=== PATIENT | female | born 1970 ===

== ENCOUNTER 2017-10-15 17:15 | Inpatient (IN) | payer OTHER ==
[2017-10-15 17:16] VITALS: BMI 31.1
[2017-10-15] MEDS ORDERED: Oxycodone/Acetaminophen 5/325 mg Tab PO STA (17:59)
--- NOTE | 2017-10-15 17:59 | C.PDOC ---
History Of Present Illness 47 y/o F c known R ovarian cystic mass for which patient is seeing Dr. Smita Osullivan and is being scheduled for resection. Patient states she has had significant pain for almost 1 month. She was prescribed Percocet but states she did not try taking it today because it makes her constipated and she has difficulty straining due to the pain. Denies fever, dysuria, vomiting. Time Seen by Provider: 10/15/17 17:43 Chief Complaint (Nursing): Abdominal Pain Past Medical History Vital Signs: Last Vital Signs Temp 98.7 F 10/15/17 17:30 Pulse 89 10/15/17 17:30 Resp 20 10/15/17 17:30 BP 120/66 10/15/17 19:50 Pulse Ox 97 10/15/17 18:43 - Medical History PMH: Depression (denies suicidal ideations) Denies: HIV, Chronic Kidney Disease Surgical History: Endoscopy - [facility] Procedures CLOSED ENDOSCOPIC BIOPSY OF LARGE INTESTINE (05/05/14) COMPRESSION OF ABDOMINAL WALL USING PRESSURE DRESSING (05/08/16) ESOPHAGOGASTRODUODENOSCOPY [EGD] W/CLOSED BIOPSY (05/05/14) INJECT/INFUSE ELECTROLYT (06/05/13) INJECT/INFUSE NEC (06/05/13) RESECTION OF BILATERAL FALLOPIAN TUBES, OPEN APPROACH (04/22/16) RESECTION OF CERVIX, OPEN APPROACH (04/22/16) RESECTION OF UTERUS, OPEN APPROACH (04/22/16) Family History: States: Unknown Family Hx - Social History Hx Tobacco Use: Yes (10 per day) Hx Alcohol Use: Yes Hx Substance Use: No - Immunization History Hx Tetanus Toxoid Vaccination: No Hx Influenza Vaccination: No Hx Pneumococcal Vaccination: No Review Of Systems Except As Marked, All Systems Reviewed And Found Negative. Constitutional: Negative for: Fever Cardiovascular: Negative for: Chest Pain Physical Exam - Physical Exam Additional Physical Exam Comments: Gen: NAD Head: NC/AT Eyes: PERRL ENT: MMM Neck: Supple Chest: No tenderness CV: Regular rate Lungs: CTA b/l Abd: R pelvic tenderness Back: No CVA tenderness Extremities: No edema Neuro: Alert, no focal deficit Skin: Lower abdominal scar , well healed, no discharge ED Course And Treatment - Laboratory Results Result Diagrams: 10/15/17 18:57 10/15/17 18:57 O2 Sat by Pulse Oximetry: 97 Medical Decision Making Medical Decision Making: Discussed case with Dr. Osullivan who states if patient can tolerate PO pain medication and relieves pain sufficiently, can be discharged and will be scheduled as outpatient likely Monday or . Patient states she is agreeable to this plan if given stool softener with pain medication. Patient states pain not controlled. Parenteral analgesia administered. Dr. Osullivan accepts patient to her service. Disposition - Disposition Disposition: HOSPITALIZED Disposition Time: 18:43 Condition: FAIR Forms: [employer] (Albanian) - Clinical Impression Clinical Impression: Ovarian cyst, Intractable pain
[2017-10-15] MEDS ORDERED: Oxycodone/Acetaminophen 5/325 mg Tab ONE (18:13)
[2017-10-15 19:09] LABS: BASO # 0.1 K/uL (0.0-0.2); BASO % 1.3 % (0.0-2.0); EOS # 0.2 K/uL (0.0-0.7); EOS % 1.5 % (0.0-4.0); HEMOGLOBIN 12.9 g/dL (11.0-16.0); LYMPH # 3.3 K/uL (1.0-4.3); LYMPH % 30.6 % (20.0-40.0); MEAN CELL VOLUME 79.1 fL (81.0-99.0); MEAN CORPUSCULAR HEMOGLOBIN 27.7 pg (27.0-31.0); MONO # 0.8 K/uL (0.0-0.8); MONO % 7.2 % (0.0-10.0); NEUT # 6.4 K/uL (1.8-7.0); NEUT % 59.4 % (50.0-75.0); NRBC % 0.2 % (0.0-2.0); RBC 4.65 Mil/uL (3.80-5.20); RED CELL DISTRIBUTION WIDTH 13.8 % (11.5-14.5); WHITE BLOOD COUNT 10.8 K/uL (4.8-10.8)
[2017-10-15 19:14] LABS: INR 1.1; PROTHROMBIN TIME 11.9 SECONDS (9.7-12.2)
[2017-10-15 19:21] LABS: ALB/GLOB RATIO 1.2 (1.0-2.1); ALT/SGPT 18 U/L (9-52); AST/SGOT 17 U/L (14-36); BLOOD UREA NITROGEN 11 mg/dL (7-17); CALCIUM 9.6 mg/dl (8.6-10.4); GFR AFRICAN-AMERICAN > 60; GFR NON-AFRICAN AMERICAN > 60
[2017-10-15] MEDS ORDERED: Morphine 4 MG/ML VIAL ONE (19:22)
[2017-10-15 19:34] LABS: SQUAMOUS EPITHIAL 5 /hpf (0-5); URINE BACTERIA RARE (<OCC); URINE BILIRUBIN NEGATIVE (NEGATIVE); URINE BLOOD NEGATIVE (NEGATIVE); URINE CLARITY Clear (Clear); URINE COLOR Yellow (YELLOW); URINE GLUCOSE (UA) NORMAL (Normal); URINE LEUKOCYTE ESTERASE NEG Leu/uL (Negative); URINE PROTEIN NEGATIVE (NEGATIVE); URINE UROBILINOGEN NORMAL mg/dL (0.2-1.0)
[2017-10-15] MEDS ORDERED: Oxycodone/Acetaminophen 5/325 mg Tab PO PRN (21:37)
[2017-10-16 08:02] LABS: BASO # 0.1 K/uL (0.0-0.2); BASO % 1.2 % (0.0-2.0); EOS # 0.1 K/uL (0.0-0.7); EOS % 1.4 % (0.0-4.0); HEMOGLOBIN 12.5 g/dL (11.0-16.0); LYMPH # 2.1 K/uL (1.0-4.3); LYMPH % 25.3 % (20.0-40.0); MEAN CELL VOLUME 79.1 fL (81.0-99.0); MEAN CORPUSCULAR HEMOGLOBIN 27.8 pg (27.0-31.0); MEAN CORPUSCULAR HGB CONC 35.2 g/dL (33.0-37.0); MONO # 0.5 K/uL (0.0-0.8); MONO % 6.3 % (0.0-10.0); NEUT # 5.6 K/uL (1.8-7.0); NEUT % 65.8 % (50.0-75.0); RBC 4.5 Mil/uL (3.80-5.20); RED CELL DISTRIBUTION WIDTH 14.4 % (11.5-14.5); WHITE BLOOD COUNT 8.5 K/uL (4.8-10.8)
[2017-10-16 08:36] LABS: ALB/GLOB RATIO 1.2 (1.0-2.1); ALBUMIN 3.8 g/dL (3.5-5.0); AST/SGOT 92 U/L (14-36); BLOOD UREA NITROGEN 11 mg/dL (7-17); CALCIUM 9.1 mg/dl (8.6-10.4); GFR AFRICAN-AMERICAN > 60; GFR NON-AFRICAN AMERICAN > 60
[2017-10-16 08:41] LABS: ALT/SGPT 82 U/L (9-52)
[2017-10-16] MEDS: Oxycodone/Acetaminophen 5/325 mg Tab PO PRN ×2 (09:20→17:30)
--- NOTE | 2017-10-16 14:32 | US ---
HISTORY: for pelvic mass COMPARISON: None available. TECHNIQUE: Transabdominal and transvaginal FINDINGS: UTERUS: Status post hysterectomy ENDOMETRIUM: Hysterectomy CERVIX: Hysterectomy RIGHT OVARY: In the right adnexal region there is a complex cyst with low-level internal echoes and few thin septations measuring 8.8 x 6.5 x 7.2 cm. This may represent a hemorrhagic cyst. Also on the right side, there is what appears to be a hydrosalpinx. There is no left ovary identified. No other pelvic mass is identified. LEFT OVARY: As above FREE FLUID: No significant free fluid noted. OTHER FINDINGS: None. IMPRESSION: Probable hemorrhagic right ovarian cyst, 8.8 cm greatest dimension. Suspect right hydrosalpinx.
--- NOTE | 2017-10-16 18:16 | CP.PCM.HP ---
History of Present Illness - History of Present Illness History of Present Illness: Delayed entry: pt seen and eamined at 8:30am today 47 y/o hx of MILTON and abdominoplasty x 2 (most recent <30 days ago) with pelvic pain secondary to ovarian cyst 9cm. pt reports she first noticed pain a few months ago after intercourse however it resolved and then recently noticed the sudden onset of intense pain prompting her to go to ER. Pt states she is concerned about needing surgery again and reprots she is unhappy about her abdominal swelling. Pt did experience a wound infection that took an extended time of recovery requring a wound vac after her hystecotmy. Pt reports she is not taking any pain medication currently, dneis nausea, vomiting, cps, bowel ro bladder compliant fever, chills. Pt was seen in ER and evaluated o/p in office and given hx of extensive wound breakdown was referred to computer graphic artist onc for possible robotic / minimally invasive approach given previous surgical hx. Pt had follow up but declined to have surgery and would like to have it done as soon as possible. pt was also referred to general surgery as well for co manaagment given risk of adhesions. Pt had increasing pain latst night and was informed by doctor to go to ER in while pt was not able ot achieve adequate control with po mediation using iv pain medication. pt dnies any weight gain or loss, early satiey, abodminal distension or bloating. pt had tumor markers that were done and were normal.Pt sates pain is mainly rlq constant in nature, varies intesnity and severity. 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: hx of ovarian cyst, s/p MILTON, hx of abnormal pap, fibroids Period lmp 2015, last pap 01/06/2016, PMH: 5 herinated discs of lower back, 3 neck discs PHS: Hysteroscopy 2016, Hysterecotmy 2016, Liposuction, Tummy tuck, Tubal ligation, FHX: Mother/Fater alive and healthy: Uncled Decedased form cancer, denies any hx of anbormla uterine, colon, breast or ovarian cancer SHX: former smoker, social alcohol, no ivda meds: see meds rec NKDA Present on Admission - Present on Admission Any Indicators Present on Admission: No History of DVT/PE: No History of Uncontrolled Diabetes: No Review of Systems - Review of Systems All systems: reviewed and no additional remarkable complaints except - EENT Eyes: absent: As Per HPI, Blind Spots, Blurred Vision, Change in Vision, Decreased Night Vision, Diplopia, Discharge, Dry Eye, Exophthalmos, Floaters, Irritation, Itchy Eyes, Loss of Peripheral Vision, Pain, Photophobia, Requires Corrective Lenses, Sees Flashes, Spots in Vision, Tunnel Vision, Other Visual Disturbances, Loss of Vision, Other Nose/Mouth/Throat: absent: As Per HPI, Epistaxis, Nasal Congestion, Nasal Discharge, Nasal Obstruction, Nasal Trauma, Nose Pain, Post Nasal Drip, Sinus Pain, Sinus Pressure, Bleeding Gums, Change in Voice, Dental Pain, Dry Mouth, Dysphagia, Halitosis, Hoarsness, Lip Swelling, Mouth Lesions, Mouth Pain, Odynophagia, Sore Throat, Throat Swelling, Tongue Swelling, Facial Pain, Neck Pain, Neck Mass, Other - Breasts Breasts: absent: As Per HPI, Change in Shape, Mass, Pain, Nipple Discharge, Nipple Inversion, Skin Changes, Swelling, Other - Cardiovascular Cardiovascular: absent: As Per HPI, Acrocyanosis, Chest Pain, Chest Pain at Rest , Chest Pain with Activity, Claudication, Diaphoresis, Dyspnea, Dyspnea on Exertion, Edema, Irregular Heart Rhythm, Pain Radiating to Arm/Neck/Jaw, Leg Edema, Leg Ulcers, Lightheadedness, Orthopnea, Palpitations, Paroxysmal Nocturnal Dyspnea, Pedal Edema, Radiating Pain, Rapid Heart Rate, Slow Heart Rate, Syncope, Other - Respiratory Respiratory: absent: As Per HPI, Cough, Dyspnea, Hemoptysis, Dyspnea on Exertion , Wheezing, Snoring, Stridor, Pain on Inspiration, Chest Congestion, Excessive Mucous Production, Change in Mucous Color, Pain with Coughing, Other - Gastrointestinal Gastrointestinal: Abdominal Pain - Genitourinary Genitourinary: absent: As Per HPI, Change in Urinary Stream, Difficulty Urinating, Dysuria, Flank Pain, Hematuria, Pyuria, Nocturia, Urinary Incontinence, Urinary Frequency, Urinary Hesitance, Urinary Urgency, Voiding Freq/Small Amts, Freq UTI, Hx Renal/Bladder Calculi, Hx /Renal Surgery, Bladder Distension, Other - Reproductive: Female Reproductive:Female: S/P Hysterectomy - Menstruation Menstruation: As Per HPI - Musculoskeletal Musculoskeletal: absent: As Per HPI, Abnormal Gait, Arthralgias, Atrophy, Back Pain, Deformity, Joint Swelling, Limited Range of Motion, Loss of Height, Muscle Cramps, Muscle Weakness, Myalgias, Neck Pain, Numbness, Radiating Pain into Limb, Stiffness, Tingling, Other - Integumentary Integumentary: absent: As Per HPI, Acne, Alopecia, Bleeding Lesions, Change in Hair, Change in Nails, Change in Pigmentation, Changing Lesions, Dry Skin, Erythema, Furuncle, Hirsutism, Lesions, New Lesions, Non-Healing Lesions, Photosensitivity, Pruritus, Rash, Skin Pain, Skin Ulcer, Sores, Striae, Swelling , Unusual Bruising, Wounds, Jaundice, Other Past Patient History - Infectious Disease Hx of Infectious Diseases: None - Tetanus Immunizations Tetanus Immunization: Unknown - Past Medical History & Family History Past Medical History?: Yes - Past Social History Smoking Status: Current Some Days Smoker - CARDIAC Hx Cardiac Disorders: No - PULMONARY Hx Respiratory Disorders: No - NEUROLOGICAL Hx Neurological Disorder: No - HEENT Hx HEENT Problems: Yes - RENAL Hx Chronic Kidney Disease: No - ENDOCRINE/METABOLIC Hx Endocrine Disorders: No - HEMATOLOGICAL/ONCOLOGICAL Hx Human Immunodeficiency Virus (HIV): No - INTEGUMENTARY Hx Dermatological Problems: No - MUSCULOSKELETAL/RHEUMATOLOGICAL Hx Falls: No - GASTROINTESTINAL Hx Gastrointestinal Disorders: Yes (CONSTIPATION) Other/Comment: 09/18/2017 abdominal liposuction - GENITOURINARY/GYNECOLOGICAL Hx Genitourinary Disorders: Yes - PSYCHIATRIC Hx Depression: Yes (denies suicidal ideations) Hx Substance Use: No - SURGICAL HISTORY Hx Breast Biopsy: (breast reduction jose manuel) Hx Hysterectomy: Yes Other/Comment: christina ledesma 2014. breast reduction 11/2016. abd liposuction - ANESTHESIA Hx Anesthesia: Yes Hx Anesthesia Reactions: No Hx Malignant Hyperthermia: No Meds Allergies/Adverse Reactions: Allergies Allergy/AdvReac Type Severity Reaction Status Date / Time No Known Allergies Allergy Verified 10/15/17 17:37 Physical Exam - Constitutional Appears: Well, Non-toxic, No Acute Distress - Head Exam Head Exam: ATRAUMATIC, NORMAL INSPECTION - Eye Exam Eye Exam: EOMI - ENT Exam ENT Exam: Mucous Membranes Moist - Neck Exam Neck exam: Positive for: Normal Inspection - Respiratory Exam Respiratory Exam: Clear to Auscultation Bilateral, NORMAL BREATHING PATTERN - Cardiovascular Exam Cardiovascular Exam: REGULAR RHYTHM, +S1, +S2 - GI/Abdominal Exam GI & Abdominal Exam: Soft, Tenderness Additional comments: RLQ non guarding, no rebound tendner, no tidity, +BS rpeivsu incison c/d/i preoivus scar non tender - Exam Additional comments: External gentiali: no gross abnormalies Vagna; cuff intact Uteurs; absent Right adnexa; mass enalrged ttp Anus/perienum: grossly normal Results - Vital Signs Recent Vital Signs: Last Vital Signs Temp 97.7 F 10/16/17 16:00 Pulse 60 10/16/17 16:00 Resp 18 10/16/17 16:00 BP 99/62 L 10/16/17 16:00 Pulse Ox 97 10/16/17 16:00 - Labs Result Diagrams: 10/16/17 07:55 10/16/17 07:55 Labs: Laboratory Results - last 24 hr 10/15/17 10/15/17 10/15/17 18:57 18:57 18:57 WBC 10.8 RBC 4.65 Hgb 12.9 Hct 36.8 MCV 79.1 L D MCH 27.7 MCHC 35.0 RDW 13.8 Plt Count 316 MPV 8.0 Neut % (Auto) 59.4 Lymph % (Auto) 30.6 [place] % (Auto) 7.2 Eos % (Auto) 1.5 Baso % (Auto) 1.3 Neut # (Auto) 6.4 Lymph # (Auto) 3.3 [place] # (Auto) 0.8 Eos # (Auto) 0.2 Baso # (Auto) 0.1 PT 11.9 INR 1.1 APTT 34 Sodium 140 Potassium 4.1 Chloride 102 Carbon Dioxide 28 Anion Gap 14 BUN 11 Creatinine 0.7 Est GFR ( Amer) > 60 Est GFR (Non-Af Amer) > 60 Random Glucose 86 Calcium 9.6 Total Bilirubin 0.5 AST 17 ALT 18 Alkaline Phosphatase 67 Total Protein 7.2 Albumin 4.0 Globulin 3.2 Albumin/Globulin Ratio 1.2 Urine Color Urine Clarity Urine pH Ur Specific [place] Urine Protein Urine Glucose (UA) Urine Ketones Urine Blood Urine Nitrate Urine Bilirubin Urine Urobilinogen Ur Leukocyte Esterase Urine WBC (Auto) Urine RBC (Auto) Ur Squamous Epith Cells Urine Bacteria Blood Type Antibody Screen 0610/15/17 10/16/17 18:57 19:20 07:55 WBC 8.5 RBC 4.50 Hgb 12.5 Hct 35.6 MCV 79.1 L MCH 27.8 MCHC 35.2 RDW 14.4 Plt Count 305 MPV 8.0 Neut % (Auto) 65.8 Lymph % (Auto) 25.3 [place] % (Auto) 6.3 Eos % (Auto) 1.4 Baso % (Auto) 1.2 Neut # (Auto) 5.6 Lymph # (Auto) 2.1 [place] # (Auto) 0.5 Eos # (Auto) 0.1 Baso # (Auto) 0.1 PT INR APTT Sodium Potassium Chloride Carbon Dioxide Anion Gap BUN Creatinine Est GFR ( Amer) Est GFR (Non-Af Amer) Random Glucose Calcium Total Bilirubin AST ALT Alkaline Phosphatase Total Protein Albumin Globulin Albumin/Globulin Ratio Urine Color Yellow Urine Clarity Clear Urine pH 7.0 Ur Specific [place] 1.017 Urine Protein Negative Urine Glucose (UA) Normal Urine Ketones Negative Urine Blood Negative Urine Nitrate Negative Urine Bilirubin Negative Urine Urobilinogen Normal Ur Leukocyte Esterase Neg Urine WBC (Auto) < 1 Urine RBC (Auto) 1 Ur Squamous Epith Cells 5 Urine Bacteria Rare Blood Type A POSITIVE Antibody Screen Negative 10/16/17 07:55 WBC RBC Hgb Hct MCV MCH MCHC RDW Plt Count MPV Neut % (Auto) Lymph % (Auto) [place] % (Auto) Eos % (Auto) Baso % (Auto) Neut # (Auto) Lymph # (Auto) [place] # (Auto) Eos # (Auto) Baso # (Auto) PT INR APTT Sodium 138 Potassium 4.0 Chloride 101 Carbon Dioxide 28 Anion Gap 16 BUN 11 Creatinine 0.7 Est GFR ( Amer) > 60 Est GFR (Non-Af Amer) > 60 Random Glucose 103 Calcium 9.1 Total Bilirubin 1.1 AST 92 H D ALT 82 H D Alkaline Phosphatase 80 Total Protein 6.9 Albumin 3.8 Globulin 3.1 Albumin/Globulin Ratio 1.2 Urine Color Urine Clarity Urine pH Ur Specific [place] Urine Protein Urine Glucose (UA) Urine Ketones Urine Blood Urine Nitrate Urine Bilirubin Urine Urobilinogen Ur Leukocyte Esterase Urine WBC (Auto) Urine RBC (Auto) Ur Squamous Epith Cells Urine Bacteria Blood Type Antibody Screen - Imaging and Cardiology US - abdomen Status: Report reviewed by me Assessment & Plan (1) Pelvic mass Assessment and Plan: 47 y/o P3 with pelvic pain secondary to pelvic mass -admit to computer graphic artist -Pain managment: Po/IV -Regular diet for now -enocurage ambation -AM Labs -General surgery consult: re intraoperttive mangent pt advised on exploratory laparatomy, exicison of pelvic mass/ salpingoopherecotmy givne pain secondary to findigns r/ba/i not mtied to bleedign, infection, wound break down, injury to bowel, bladder or other organs pt advised will await surgery consut in regard to route and time of procedure all questions answered. pt agrees understand risk of open and even possible laparscopic approach Status: Acute
[2017-10-17 07:32] LABS: BASO % 0.5 % (0.0-2.0); EOS # 0.1 K/uL (0.0-0.7); EOS % 1.6 % (0.0-4.0); LYMPH # 2.8 K/uL (1.0-4.3); LYMPH % 31.1 % (20.0-40.0); MEAN CORPUSCULAR HGB CONC 35.4 g/dL (33.0-37.0); MONO # 0.8 K/uL (0.0-0.8); MONO % 8.6 % (0.0-10.0); NEUT # 5.1 K/uL (1.8-7.0); NEUT % 58.2 % (50.0-75.0); RBC 4.31 Mil/uL (3.80-5.20); WHITE BLOOD COUNT 8.9 K/uL (4.8-10.8)
[2017-10-17 07:50] LABS: INR 1.2; PROTHROMBIN TIME 12.6 SECONDS (9.7-12.2)
[2017-10-17 07:51] LABS: ALB/GLOB RATIO 1.5 (1.0-2.1); ALT/SGPT 59 U/L (9-52); AST/SGOT 35 U/L (14-36); BLOOD UREA NITROGEN 8 mg/dL (7-17); CALCIUM 9.1 mg/dl (8.6-10.4); GFR AFRICAN-AMERICAN > 60; GFR NON-AFRICAN AMERICAN > 60
--- NOTE | 2017-10-17 09:54 | CP.PCM.CON ---
<Grayson De La Fuente - Last Filed: 10/17/17 09:46> History of Present Illness - History of Present Illness History of Present Illness: Surgery 47 F with multiple surgical histomy including cholecystectomy, total abdominal hysterectomy, Tummy tuck, liposuction and came with pelvic pain. Pt had chronic pelvic pain and had D&C for abdnomal vaginal bleeding and hyesterctomy fibroids. Pt is also known to have ovarian cyst. This time pain started about 1 month ago and has gotten worse. Didn't take pain meds because constipation and straining made the pain worse. Pelvic US shows 9cm R ovarian cyst. Denies : fever, nausea, vomiting, diarrhea, CP, SOB, vaginal bleeding, hematochezia, skin changes on surgical site, weight loss, weight gain. Surgery is consulted to evaluate for possible minimally invasive surgical intervention. PMH hemorrhoids, fibroids, metromenorrhagia PSH tummy tuck, hysterectomy, cholecystectomy, breast reduction, liposuction, c- section Review of Systems - Review of Systems Review of Systems: See HPI Past Patient History - Infectious Disease Hx of Infectious Diseases: None - Tetanus Immunizations Tetanus Immunization: Unknown - Past Medical History & Family History Past Medical History?: Yes - Past Social History Smoking Status: Current Some Days Smoker - CARDIAC Hx Cardiac Disorders: No - PULMONARY Hx Respiratory Disorders: No - NEUROLOGICAL Hx Neurological Disorder: No - HEENT Hx HEENT Problems: Yes - RENAL Hx Chronic Kidney Disease: No - ENDOCRINE/METABOLIC Hx Endocrine Disorders: No - HEMATOLOGICAL/ONCOLOGICAL Hx Human Immunodeficiency Virus (HIV): No - INTEGUMENTARY Hx Dermatological Problems: No - MUSCULOSKELETAL/RHEUMATOLOGICAL Hx Falls: No - GASTROINTESTINAL Hx Gastrointestinal Disorders: Yes (CONSTIPATION) Other/Comment: 09/18/2017 abdominal liposuction - GENITOURINARY/GYNECOLOGICAL Hx Genitourinary Disorders: Yes - PSYCHIATRIC Hx Depression: Yes (denies suicidal ideations) Hx Substance Use: No - SURGICAL HISTORY Hx Breast Biopsy: (breast reduction jose manuel) Hx Hysterectomy: Yes Other/Comment: christina ledesma 2014. breast reduction 11/2016. abd liposuction - ANESTHESIA Hx Anesthesia: Yes Hx Anesthesia Reactions: No Hx Malignant Hyperthermia: No Meds Allergies/Adverse Reactions: Allergies Allergy/AdvReac Type Severity Reaction Status Date / Time No Known Allergies Allergy Verified 10/15/17 17:37 - Medications Medications: Current Medications Diphenhydramine HCl (Benadryl) 25 mg PO Q6 PRN PRN Reason: for itchiness Last Admin: 10/16/17 21:02 Dose: 25 mg Docusate Sodium (Colace) 100 mg PO BID ALINA Last Admin: 10/17/17 09:26 Dose: Not Given Lactated Ringer's (Lactated Ringer's) 1,000 mls @ 100 mls/hr IV .Q10H [facility] Ketorolac Tromethamine (Toradol) 30 mg IVP Q6 PRN PRN Reason: for pain Last Admin: 10/17/17 09:36 Dose: 30 mg Oxycodone/Acetaminophen (Percocet 5/325 Mg Tab) 1 tab PO Q4H PRN PRN Reason: for pain of 1-3 Stop: 10/18/17 21:38 Oxycodone/Acetaminophen (Percocet 5/325 Mg Tab) 2 tab PO Q4H PRN PRN Reason: for pain of 4-7 Stop: 10/18/17 21:40 Last Admin: 10/16/17 17:30 Dose: 2 tab Physical Exam - Constitutional Appears: Non-toxic, No Acute Distress - Head Exam Head Exam: ATRAUMATIC, NORMAL INSPECTION, NORMOCEPHALIC - Eye Exam Eye Exam: EOMI, Normal appearance, PERRL Pupil Exam: NORMAL ACCOMODATION, PERRL - ENT Exam ENT Exam: Mucous Membranes Moist, Normal Exam - Neck Exam Neck exam: Positive for: Normal Inspection - Respiratory Exam Respiratory Exam: Clear to Auscultation Bilateral, NORMAL BREATHING PATTERN - Cardiovascular Exam Cardiovascular Exam: REGULAR RHYTHM - GI/Abdominal Exam GI & Abdominal Exam: Normal Bowel Sounds, Soft. absent: Tenderness Additional comments: obese abdomen. healing tummy tuck scar. NO erythema. Discoloration . mass Non palpable - Rectal Exam Rectal Exam: Deferred - Exam Exam: NORMAL INSPECTION Additional comments: differed - Extremities Exam Extremities exam: Positive for: normal inspection - Back Exam Back exam: NORMAL INSPECTION - Neurological Exam Neurological exam: Alert, CN II-XII Intact, Normal Gait, Oriented x3, Reflexes Normal - Psychiatric Exam Psychiatric exam: Normal Affect, Normal Mood - Skin Skin Exam: Dry, Intact, Warm Results - Vital Signs Recent Vital Signs: Last Vital Signs Temp 97.0 F L 10/17/17 00:00 Pulse 60 06/12/18 00:00 Resp 20 10/17/17 00:00 BP 100/64 10/17/17 00:00 Pulse Ox 97 10/16/17 16:00 - Labs Result Diagrams: 10/17/17 07:17 10/17/17 07:17 Labs: Laboratory Results - last 24 hr 10/17/17 10/17/17 10/17/17 07:17 07:17 07:17 WBC 8.9 RBC 4.31 Hgb 12.0 Hct 34.0 MCV 79.0 L MCH 28.0 MCHC 35.4 RDW 14.0 Plt Count 301 MPV 8.0 Neut % (Auto) 58.2 Lymph % (Auto) 31.1 [place] % (Auto) 8.6 Eos % (Auto) 1.6 Baso % (Auto) 0.5 Neut # (Auto) 5.1 Lymph # (Auto) 2.8 [place] # (Auto) 0.8 Eos # (Auto) 0.1 Baso # (Auto) 0.0 PT 12.6 H INR 1.2 APTT 33 Sodium 137 Potassium 4.6 Chloride 100 Carbon Dioxide 32 H Anion Gap 11 BUN 8 Creatinine 0.7 Est GFR ( Amer) > 60 Est GFR (Non-Af Amer) > 60 Random Glucose 93 Calcium 9.1 Total Bilirubin 0.9 AST 35 ALT 59 H D Alkaline Phosphatase 64 Total Protein 6.7 Albumin 4.0 Globulin 2.7 Albumin/Globulin Ratio 1.5 Blood Type Antibody Screen 10/17/17 07:21 WBC RBC Hgb Hct MCV MCH MCHC RDW Plt Count MPV Neut % (Auto) Lymph % (Auto) [place] % (Auto) Eos % (Auto) Baso % (Auto) Neut # (Auto) Lymph # (Auto) [place] # (Auto) Eos # (Auto) Baso # (Auto) PT INR APTT Sodium Potassium Chloride Carbon Dioxide Anion Gap BUN Creatinine Est GFR ( Amer) Est GFR (Non-Af Amer) Random Glucose Calcium Total Bilirubin AST ALT Alkaline Phosphatase Total Protein Albumin Globulin Albumin/Globulin Ratio Blood Type A POSITIVE Antibody Screen Negative Assessment & Plan - Assessment and Plan (Free Text) Assessment: Pelvic pain 2/2 R ovarian cyst and possible adhesions from multiple abdominal surgeries -Planned for OR today with possible laparoscopic surgery -NPO -IVF -Pain control -DVT/GI ppx DW Dr. Solis <Chaparro Solis - Last Filed: 10/21/17 00:23> Meds - Medications Medications: Current Medications Diphenhydramine HCl (Benadryl) 25 mg PO Q6 PRN PRN Reason: for itchiness Last Admin: 10/16/17 21:02 Dose: 25 mg Diphenhydramine HCl (Benadryl) 25 mg IVP Q6 PRN PRN Reason: Itching / Pruritus Last Admin: 10/18/17 07:14 Dose: 25 mg Diphenhydramine HCl (Benadryl) 50 mg IVP Q6 PRN PRN Reason: Sedation Last Admin: 10/20/17 15:34 Dose: 50 mg Docusate Sodium (Colace) 100 mg PO BID ALINA Last Admin: 10/20/17 17:41 Dose: 100 mg Enoxaparin Sodium (Lovenox) 30 mg SC DAILY@1900 ALINA Last Admin: 10/20/17 19:38 Dose: 30 mg Famotidine (Pepcid) 20 mg IVP DAILY [facility] Lactated Ringer's (Lactated Ringer's) 1,000 mls @ 100 mls/hr IV .Q10H ALINA Piperacillin Sod/Tazobactam Sod (Zosyn 3.375 Gm Iv Premix) 3.375 gm in 50 mls @ 100 mls/hr IVPB Q6H ALINA PRN Reason: Protocol Last Admin: 10/20/17 22:01 Dose: 100 mls/hr Ketorolac Tromethamine (Toradol) 30 mg IVP Q6 PRN PRN Reason: for pain Last Admin: 10/20/17 20:22 Dose: 30 mg Metoclopramide HCl (Reglan) 10 mg IVP ONCE PRN PRN Reason: Nausea/Vomiting Oxycodone/Acetaminophen (Percocet 5/325 Mg Tab) 1 tab PO Q6H PRN PRN Reason: Pain, moderate (4-7) Stop: 10/22/17 16:59 Simethicone (Mylicon Chew Tab) 80 mg PO Q4H PRN PRN Reason: GI distress Last Admin: 10/20/17 05:23 Dose: 80 mg Results - Vital Signs Recent Vital Signs: Last Vital Signs Temp 98.0 F 10/21/17 00:00 Pulse 81 10/21/17 00:00 Resp 20 10/21/17 00:00 BP 105/63 10/21/17 00:00 Pulse Ox 99 10/20/17 16:00 - Labs Result Diagrams: 10/18/17 11:05 10/18/17 07:13 Attending/Attestation - Attestation I have personally seen and examined this patient.: Yes I have fully participated in the care of the patient.: Yes I have reviewed all pertinent clinical information: Yes Notes (Text): Pt was seen and examined at bedside Agree with above note and assessment Pt with severe lower abdominal pain and large ovarian cyst Lower abdominal tenderness present Labs and radiology reviewed Ass: Large ovarian cyst with possible post operative adhesions Plan: As per Dr. Osullivan, During operation if patient has extensive adhesions, surgery will be consulted intra operatively for lysis of adhesions if needed. Plan d.w pt in detail Risk and benefit explained in detail.
[2017-10-17] MEDS ORDERED: cefOXitin IV 1 gm in Dextrose 2 GM/100 ML BAG IVPB ONE ×2 (13:13→17:55)
[2017-10-17] MEDS ORDERED: Bupivacaine HCl 0.5% PF (30 ml) Inj ONE (13:13)
[2017-10-17] MEDS ORDERED: Midazolam 2 MG/2 ML VIAL ONE (13:49)
[2017-10-17] MEDS ORDERED: Propofol 10 mg/ml Inj (20 ML) ONE (13:49)
[2017-10-17] MEDS ORDERED: Rocuronium 10 mg/ml (5 ml) ONE ×2 (15:19→16:13)
[2017-10-17] MEDS ORDERED: Neostigmine Methylsulfate 3mg/3ml Syringe IV ONE (16:04)
[2017-10-17] MEDS ORDERED: HYDROmorphone 0.5 mg/0.5 ml ISec IVP PRN (17:20)
[2017-10-17] MEDS ORDERED: Esmolol 100 mg/10ml Inj IV ONE (17:50)
[2017-10-17] MEDS ORDERED: Phenylephrine 10 mg/ml Inj ONE (17:51)
[2017-10-17] MEDS ORDERED: DiphenhydrAMINE 50 mg/ml Inj IVP PRN (19:58)
[2017-10-17] MEDS ORDERED: Morphine Monoject Barrel PCA 1mg/ml IV PRN (19:58)
--- NOTE | 2017-10-17 20:10 | CP.PCM.PN ---
Subjective - Date & Time of Evaluation Date of Evaluation: 10/17/17 Time of Evaluation: 13:00 - Subjective Subjective: Pt seen and examiend adn reprots severe pain only sometimes allevaitd with medicaion. pt reprots some nause, no vomitng, no issues with bowel or bladder compliants, no fever, chills. pt ambulating. Objective - Vital Signs/Intake and Output Vital Signs (last 24 hours): Temp Pulse Resp BP Pulse Ox 97.0 F L 60 20 100/64 97 10/17/17 00:00 10/17/17 00:00 10/17/17 00:00 10/17/17 00:00 10/16/17 16:00 Intake and Output: 10/17/17 10/18/17 18:59 06:59 Intake Total 2750 Output Total 200 Balance 2750 -200 - Medications Medications: Current Medications Diphenhydramine HCl (Benadryl) 25 mg PO Q6 PRN PRN Reason: for itchiness Last Admin: 10/16/17 21:02 Dose: 25 mg Diphenhydramine HCl (Benadryl) 25 mg IVP Q6 PRN PRN Reason: Itching / Pruritus Docusate Sodium (Colace) 100 mg PO BID [facility] Last Admin: 10/17/17 18:18 Dose: Not Given Hydromorphone HCl (Dilaudid) 0.5 mg IVP Q5M PRN PRN Reason: Pain, moderate (4-7) Stop: 10/17/17 21:57 Lactated Ringer's (Lactated Ringer's) 1,000 mls @ 100 mls/hr IV .Q10H [facility] Lactated Ringer's (Lactated Ringer's) 1,000 mls @ 100 mls/hr IV .Q10H [facility] Stop: 10/19/17 02:14 Ketorolac Tromethamine (Toradol) 30 mg IVP Q6 PRN PRN Reason: for pain Last Admin: 10/17/17 09:36 Dose: 30 mg Metoclopramide HCl (Reglan) 10 mg IVP ONCE PRN PRN Reason: Nausea/Vomiting Morphine Sulfate/Sodium Chloride (Morphine Spinning Room Worker Monoject Barrel) 30 mg IV Q4H PRN; Protocol PRN Reason: Pain, moderate (4-7) Stop: 10/18/17 19:58 Ondansetron HCl (Zofran Inj) 4 mg IVP ONCE PRN PRN Reason: Nausea/Vomiting Stop: 10/17/17 21:57 Oxycodone/Acetaminophen (Percocet 5/325 Mg Tab) 1 tab PO Q4H PRN PRN Reason: for pain of 1-3 Stop: 10/18/17 21:38 Oxycodone/Acetaminophen (Percocet 5/325 Mg Tab) 2 tab PO Q4H PRN PRN Reason: for pain of 4-7 Stop: 10/18/17 21:40 Last Admin: 10/16/17 17:30 Dose: 2 tab - Labs Labs: 10/17/17 07:17 10/17/17 07:17 PT 12.6 SECONDS (9.7-12.2) H 10/17/17 07:17 INR 1.2 10/17/17 07:17 APTT 33 SECONDS (21-34) 10/17/17 07:17 - Head Exam Head Exam: ATRAUMATIC, NORMAL INSPECTION - Eye Exam Eye Exam: EOMI - ENT Exam ENT Exam: Mucous Membranes Dry - Neck Exam Neck Exam: Full ROM - Respiratory Exam Respiratory Exam: Clear to Ausculation Bilateral, NORMAL BREATHING PATTERN - Cardiovascular Exam Cardiovascular Exam: +S1, +S2 - GI/Abdominal Exam GI & Abdominal Exam: Soft, Tenderness Additional comments: no guardng, no reound tnendere, no rigidty ve: no gross bnomarlies cuffintact rihgt pelic mass ttp - Extremities Exam Extremities Exam: Full ROM, Normal Inspection. absent: Calf Tenderness, Joint Swelling, Normal Capillary Refill, Pedal Edema, Tenderness Assessment and Plan (1) Pelvic mass Assessment & Plan: r/b/a/i of surgical managment dw patient not limted to dx laparascopy, pelvic washing, exicison of pelvic mass ,exicsion adn reviweion of priro abomdinla incsion, ovairan cystecotmy/ooperecotmy, salpingecotmy, possible open, posisbly cysto with general usrgeyr pt advied on r/b/ai/o of premaatuer menopause with oopertecomty and risk of hot flahes vagianl dryness etc pt understand possible opien and risk of bowel bladder blood vssel organ lesions consent obatined npo, ivf consent obtained or/anesthesi aware Status: Acute
--- NOTE | 2017-10-17 20:13 | PCM.SURG1 ---
Surgeon's Initial Post Op Note - Surgeon's Notes Surgeon: Smita Osullivan MD [employer] Detail: MD Josh Franco MD, Leilani Xavier RN Type of Anesthesia: General Endo Pre-Operative Diagnosis: Pelvic pain, pelvic mass, Ovarian cyst, hydrosalpinx Operative Findings: Dense adhesions of omentum to anterior abodmin wall along left side wall along umbiulucs to pelvic mass, small bowel, cecum, appendix atached to cystic mass and posteriorly bladder and cuff , enlarge 9cm. incidential appendecotmy by gen surgery due to dense adhesions to cyst wall. posterior ovary/mass attached to bladderand cuff with mall bowel and omental adhesion up to anterior abodminal wall. 4+ lhour on extensive lysis of adhesions. prior exploratry laparatomy scare incison entred and exiced. decision to enter based on small bowel findings. partial exicsion and release laprasopy completed open due to cocnerns near bladder. ebl 200ml. Dr Josh Chang was surgical assistan and present fo rentire case adn essential in gaining entry laparascopic, establishign pnemperiteinum, gainign access, lysing adhesin , hleping to dissect cyst wall, exicsion of pelvic mass, holding camera, conversion to open conitnution of lextenist lysis of adhesions and removal of pelvic mass. lease refer to general surgeyr re: extensive lysis of adhesions, appendecotmy, small bowel resection with anastomosis Post-Operative Diagnosis: same as above, extensive lysis of adhesions , pelvic mass , incisential appendecomty Operation Performed: Diagnostis laparasopcy, lysis of adhesions, exicsion and drainiage of pelvic mass, exicsion and revision of prior exploratoyr lapraatiom scar, completin of lysis of adhesion via laparatomyt with removal of pelivc pmass, opphrecotmy, adn ovarian cystecotmy Specimen/Specimens Removed: pelvic washing, excision of pelvic mass, removal of ovarian cyst and oophrecotmy, exicsion of prior abdominal wall skin incsion Estimated Blood Loss: EBL {In ML}: 200 Blood Products Given: N/A Date of Surgery/Procedure: 10/17/17 Time of Surgery/Procedure: 13:55
[2017-10-17] MEDS ORDERED: Lactated Ringer's 1,000 ML IV SCH ×2 (20:15)
[2017-10-17] MEDS ORDERED: HYDROmorphone 0.5 mg/0.5 ml ISec ONE (20:23)
[2017-10-17] MEDS: HYDROmorphone 0.5 mg/0.5 ml ISec IVP PRN ×3 (20:23→21:04)
[2017-10-17 20:27] LABS: BASO # 0.1 K/uL (0.0-0.2); BASO % 0.4 % (0.0-2.0); HEMOGLOBIN 11.7 g/dL (11.0-16.0); LYMPH # 0.9 K/uL (1.0-4.3); LYMPH % 5.2 % (20.0-40.0); MEAN CELL VOLUME 79.1 fL (81.0-99.0); MEAN CORPUSCULAR HEMOGLOBIN 27.2 pg (27.0-31.0); MEAN CORPUSCULAR HGB CONC 34.4 g/dL (33.0-37.0); MEAN PLATELET VOLUME 7.7 fL (7.2-11.7); MONO # 0.4 K/uL (0.0-0.8); MONO % 2.5 % (0.0-10.0); NEUT # 15.9 K/uL (1.8-7.0); NEUT % 91.9 % (50.0-75.0); PLATELET COUNT 316 K/uL (130-400); RBC 4.32 Mil/uL (3.80-5.20); RED CELL DISTRIBUTION WIDTH 13.8 % (11.5-14.5); WHITE BLOOD COUNT 17.3 K/uL (4.8-10.8)
[2017-10-17 20:46] LABS: ALB/GLOB RATIO 1.4 (1.0-2.1); ALBUMIN 3.8 g/dL (3.5-5.0); ALT/SGPT 45 U/L (9-52); AST/SGOT 29 U/L (14-36); BLOOD UREA NITROGEN 9 mg/dL (7-17); CALCIUM 8.5 mg/dl (8.6-10.4); GFR AFRICAN-AMERICAN > 60; GFR NON-AFRICAN AMERICAN > 60
[2017-10-17 21:08] LABS: BANDS 1 % (0-2); EOSINOPHIL 1 % (0-4); LYMPHOCYTE 8 % (20-40); MONOCYTE 10 % (0-10); NEUTROPHIL 80 % (50-75); PLATELET ESTIMATE NORMAL (NORMAL); TOTAL CELLS COUNTED 100
[2017-10-17 21:09] LABS: MICROCYTOSIS SLIGHT; POLYCHROMIC SLIGHT
[2017-10-17] MEDS: Piperacill/Tazo 3.375gm in Dex 3.375 GM/50 ML BAG IVPB SCH (22:30)
[2017-10-18] MEDS: Morphine 4 MG/ML VIAL IVP PRN ×2 (04:30→11:43)
[2017-10-18] MEDS: Piperacill/Tazo 3.375gm in Dex 3.375 GM/50 ML BAG IVPB SCH ×4 (04:38→22:00)
[2017-10-18 07:48] LABS: ALB/GLOB RATIO 1.5 (1.0-2.1); ALBUMIN 3.9 g/dL (3.5-5.0); ALT/SGPT 48 U/L (9-52); AST/SGOT 44 U/L (14-36); BLOOD UREA NITROGEN 7 mg/dL (7-17); CALCIUM 8.7 mg/dl (8.6-10.4); GFR AFRICAN-AMERICAN > 60; GFR NON-AFRICAN AMERICAN > 60
[2017-10-18 11:13] LABS: BASO # 0.1 K/uL (0.0-0.2); BASO % 0.6 % (0.0-2.0); EOS # 0.1 K/uL (0.0-0.7); EOS % 0.4 % (0.0-4.0); HEMOGLOBIN 11.5 g/dL (11.0-16.0); LYMPH # 2.8 K/uL (1.0-4.3); LYMPH % 21.2 % (20.0-40.0); MEAN CELL VOLUME 78.2 fL (81.0-99.0); MEAN CORPUSCULAR HEMOGLOBIN 27.9 pg (27.0-31.0); MEAN CORPUSCULAR HGB CONC 35.7 g/dL (33.0-37.0); MONO % 7.6 % (0.0-10.0); NEUT # 9.2 K/uL (1.8-7.0); NEUT % 70.2 % (50.0-75.0); RBC 4.1 Mil/uL (3.80-5.20); RED CELL DISTRIBUTION WIDTH 13.7 % (11.5-14.5); WHITE BLOOD COUNT 13.1 K/uL (4.8-10.8)
[2017-10-18] MEDS: Simethicone 80 mg Chewtab PO PRN ×2 (14:14→19:28)
--- NOTE | 2017-10-18 19:06 | CP.PCM.PN ---
Subjective - Date & Time of Evaluation Date of Evaluation: 10/18/17 Time of Evaluation: 08:30 - Subjective Subjective: Delayed entry: Pt seen and examiend , only requested IV pain medicaon once overnight, not using crt pt preorts feelign gas coming from below. pt preorts is hungry pt dneis any fever, chills, naue, vomitng, cp, sob, nasir or bladder complaints Objective - Vital Signs/Intake and Output Vital Signs (last 24 hours): Temp Pulse Resp BP Pulse Ox 99.1 F 89 18 100/69 96 10/18/17 15:50 10/18/17 15:50 10/18/17 15:50 10/18/17 15:50 10/18/17 15:50 Intake and Output: NGT Minimal Urien outpu >1000cc - Medications Medications: Current Medications Diphenhydramine HCl (Benadryl) 25 mg PO Q6 PRN PRN Reason: for itchiness Last Admin: 10/16/17 21:02 Dose: 25 mg Diphenhydramine HCl (Benadryl) 25 mg IVP Q6 PRN PRN Reason: Itching / Pruritus Last Admin: 10/18/17 07:14 Dose: 25 mg Docusate Sodium (Colace) 100 mg PO BID [facility] Last Admin: 10/18/17 17:42 Dose: Not Given Enoxaparin Sodium (Lovenox) 30 mg SC DAILY@1900 [facility] Lactated Ringer's (Lactated Ringer's) 1,000 mls @ 100 mls/hr IV .Q10H [facility] Lactated Ringer's (Lactated Ringer's) 1,000 mls @ 100 mls/hr IV .Q10H [facility] Stop: 10/19/17 02:14 Last Admin: 10/18/17 16:15 Dose: 100 mls/hr Piperacillin Sod/Tazobactam Sod (Zosyn 3.375 Gm Iv Premix) 3.375 gm in 50 mls @ 100 mls/hr IVPB Q6H [facility] PRN Reason: Protocol Last Admin: 10/18/17 16:15 Dose: 100 mls/hr Ketorolac Tromethamine (Toradol) 30 mg IVP Q6 PRN PRN Reason: for pain Last Admin: 10/18/17 16:20 Dose: 30 mg Metoclopramide HCl (Reglan) 10 mg IVP ONCE PRN PRN Reason: Nausea/Vomiting Morphine Sulfate (Morphine) 4 mg IVP Q6 PRN PRN Reason: Pain, moderate (4-7) Last Admin: 10/18/17 11:43 Dose: 4 mg Morphine Sulfate/Sodium Chloride (Morphine Office Services Representative Monoject Barrel) 30 mg IV Q4H PRN; Protocol PRN Reason: Pain, moderate (4-7) Stop: 10/18/17 19:58 Oxycodone/Acetaminophen (Percocet 5/325 Mg Tab) 1 tab PO Q4H PRN PRN Reason: for pain of 1-3 Stop: 10/18/17 21:38 Oxycodone/Acetaminophen (Percocet 5/325 Mg Tab) 2 tab PO Q4H PRN PRN Reason: for pain of 4-7 Stop: 10/18/17 21:40 Last Admin: 10/16/17 17:30 Dose: 2 tab Simethicone (Mylicon Chew Tab) 80 mg PO Q4H PRN PRN Reason: GI distress Last Admin: 10/18/17 14:14 Dose: 80 mg - Labs Labs: 10/18/17 11:05 10/18/17 07:13 PT 12.6 SECONDS (9.7-12.2) H 10/17/17 07:17 INR 1.2 10/17/17 07:17 APTT 33 SECONDS (21-34) 10/17/17 07:17 - Constitutional Appears: Well, Non-toxic - Head Exam Head Exam: ATRAUMATIC, NORMAL INSPECTION Additional comments: +NGT to suction veyr minial output none in suction cannister - Eye Exam Eye Exam: EOMI, Normal appearance - ENT Exam ENT Exam: Mucous Membranes Dry - Neck Exam Neck Exam: Full ROM - Respiratory Exam Respiratory Exam: Clear to Ausculation Bilateral, NORMAL BREATHING PATTERN - Cardiovascular Exam Cardiovascular Exam: REGULAR RHYTHM, +S1, +S2 - GI/Abdominal Exam GI & Abdominal Exam: Soft, Normal Bowel Sounds Additional comments: Non tender, non guaridng, no reboud, tnendere, no rigidty incsoin dressing c/d/i no vaignal bleeding +montalvo - Rectal Exam Rectal Exam: NORMAL INSPECTION - Extremities Exam Extremities Exam: Full ROM, Normal Inspection - Back Exam Back Exam: NORMAL INSPECTION. absent: CVA tenderness (L), CVA tenderness (R), Full ROM, muscle spasm, paraspinal tenderness, rash noted, tenderness, vertebral tenderness - Neurological Exam Neurological Exam: Alert, Awake, CN II-XII Intact, Oriented x3 - Psychiatric Exam Psychiatric exam: Normal Affect, Normal Mood - Skin Skin Exam: Dry, Intact, Normal Color Assessment and Plan (1) Pelvic mass Assessment & Plan: s/p Dx laparascopy, HARESH, exicsion of pevic mass conversion to laparatomy with SB resection and anastatomsis, incential appendecomy POD #1 1. Pain manamgnet: dc crt-->po meds 2. dc ngt 3. dc montalvo 4. encourage ambatin with assistnat 5. Abdominal binder/Incenstive spiroamter 6. AM Labs 7. Diet: Ice chips 8. DVT prophaxs lovexon Status: Acute
[2017-10-18] MEDS: Enoxaparin 30 mg Syringe SC SCH (19:49)
[2017-10-19] MEDS: Piperacill/Tazo 3.375gm in Dex 3.375 GM/50 ML BAG IVPB SCH ×4 (04:08→21:40)
[2017-10-19] MEDS: Simethicone 80 mg Chewtab PO PRN ×2 (04:57→16:35)
[2017-10-19] MEDS: Morphine 4 MG/ML VIAL IVP PRN (11:50)
[2017-10-19] MEDS ORDERED: Oxycodone/Acetaminophen 5/325 mg Tab PO PRN (16:58)
--- NOTE | 2017-10-19 17:28 | CP.PCM.PN ---
Subjective - Date & Time of Evaluation Date of Evaluation: 10/19/17 Time of Evaluation: 17:00 - Subjective Subjective: PT seen and examiend rpeorts pain over abodmen only wocntolled with iv pain emdciao. pt ambauitn, voidng, passinf, flatus, toelrated liquid diet. Pt preorts swelling in Right upper extremity and painful. pt dnie sany numbness or wealkness or loss of senation in extermits. pt dnies any fevers, hcills, nasue, vomiting. pt has no issues with urination. Objective - Vital Signs/Intake and Output Vital Signs (last 24 hours): Temp Pulse Resp BP Pulse Ox 99.2 F 101 H 20 99/70 L 98 10/19/17 08:41 10/19/17 08:41 10/19/17 08:41 10/19/17 08:41 10/19/17 08:41 Intake and Output: 10/19/17 10/19/17 06:59 18:59 Intake Total 100 500 Balance 100 500 - Medications Medications: Current Medications Diphenhydramine HCl (Benadryl) 25 mg PO Q6 PRN PRN Reason: for itchiness Last Admin: 10/16/17 21:02 Dose: 25 mg Diphenhydramine HCl (Benadryl) 25 mg IVP Q6 PRN PRN Reason: Itching / Pruritus Last Admin: 10/18/17 07:14 Dose: 25 mg Docusate Sodium (Colace) 100 mg PO BID [facility] Last Admin: 10/19/17 17:03 Dose: 100 mg Enoxaparin Sodium (Lovenox) 30 mg SC DAILY@1900 [facility] Last Admin: 10/18/17 19:49 Dose: 30 mg Lactated Ringer's (Lactated Ringer's) 1,000 mls @ 100 mls/hr IV .Q10H [facility] Piperacillin Sod/Tazobactam Sod (Zosyn 3.375 Gm Iv Premix) 3.375 gm in 50 mls @ 100 mls/hr IVPB Q6H [facility] PRN Reason: Protocol Last Admin: 10/19/17 15:50 Dose: 100 mls/hr Ketorolac Tromethamine (Toradol) 30 mg IVP Q6 PRN PRN Reason: for pain Last Admin: 10/19/17 16:34 Dose: 30 mg Metoclopramide HCl (Reglan) 10 mg IVP ONCE PRN PRN Reason: Nausea/Vomiting Oxycodone/Acetaminophen (Percocet 5/325 Mg Tab) 1 tab PO Q6H PRN PRN Reason: Pain, moderate (4-7) Stop: 10/22/17 16:59 Simethicone (Mylicon Chew Tab) 80 mg PO Q4H PRN PRN Reason: GI distress Last Admin: 10/19/17 16:35 Dose: 80 mg - Labs Labs: 10/18/17 11:05 10/18/17 07:13 PT 12.6 SECONDS (9.7-12.2) H 10/17/17 07:17 INR 1.2 10/17/17 07:17 APTT 33 SECONDS (21-34) 10/17/17 07:17 - Constitutional Appears: Well, Non-toxic - Head Exam Head Exam: ATRAUMATIC, NORMAL INSPECTION - Eye Exam Eye Exam: EOMI - ENT Exam ENT Exam: Mucous Membranes Moist - Neck Exam Neck Exam: Full ROM - Cardiovascular Exam Cardiovascular Exam: REGULAR RHYTHM, +S1, +S2 - GI/Abdominal Exam GI & Abdominal Exam: Soft, Normal Bowel Sounds Additional comments: non tendern, no guarding, no reboudn tendnerss, no rigidty incsion dressing c/d/i no vaginal bleeding - Back Exam Back Exam: NORMAL INSPECTION. absent: CVA tenderness (L), CVA tenderness (R), Full ROM, muscle spasm, paraspinal tenderness, rash noted, tenderness, vertebral tenderness - Neurological Exam Neurological Exam: Alert, Awake, CN II-XII Intact, Normal Gait, Oriented x3 - Psychiatric Exam Psychiatric exam: Normal Affect, Normal Mood - Skin Skin Exam: Dry, Intact, Normal Color, Warm Additional comments: Right upper extremisty swellign circlar area 3cm near elbow, no erytema, minially tender to palpation, strenght 5/5 , senation inctact Assessment and Plan (1) Pelvic mass Assessment & Plan: s/p dx laparascopy rosio ovarian cystectomy oopehrecotmy sb resection with anastomosi incdiential appendectomy POD # 2 -pain managment -diet: clears advance as per surgery -encourage ambuation -abdominal binder, incentive -bowel regimen as per surgery -IV antibiocs -am labs - Status: Acute
[2017-10-19] MEDS: Enoxaparin 30 mg Syringe SC SCH (18:26)
[2017-10-20] MEDS: DiphenhydrAMINE 50 mg/ml Inj IVP PRN ×2 (00:20→15:34)
[2017-10-20] MEDS: Piperacill/Tazo 3.375gm in Dex 3.375 GM/50 ML BAG IVPB SCH ×4 (04:05→22:01)
[2017-10-20] MEDS: Simethicone 80 mg Chewtab PO PRN (05:23)
[2017-10-20] MEDS: Enoxaparin 30 mg Syringe SC SCH (19:38)
[2017-10-21] MEDS: Piperacill/Tazo 3.375gm in Dex 3.375 GM/50 ML BAG IVPB SCH ×3 (03:48→15:16)
--- NOTE | 2017-10-21 06:42 | OP ---
PROCEDURE DATE: 10/17/2017 PREOPERATIVE DIAGNOSES: 1. Large ovarian cyst in pelvis. 2. Possible extensive postoperative adhesions, status post open hysterectomy. POSTOPERATIVE DIAGNOSES: 1. Large chocolate cyst with extensive inflammation and adhesions to the colon, bladder, vaginal wall, small bowel, and appendix. 2. Extensive post-infectious and postoperative adhesions of the small bowel, omentum, colon to the anterior abdominal wall, and large ovarian cyst. PROCEDURES DONE: 1. Laparoscopic appendectomy. 2. Laparoscopic extensive lysis of adhesions, converted to open. 3. Small bowel resection and anastomosis. 4. Revision of the scar, 12 x 2 cm size. 5. Drainage of remaining fluid and collection from the pelvis. SURGEON: Chaparro Solis MD ASSISTANTS: MITCH Garvey, Dr. Osullivan and Dr. Chang. ANESTHESIA: General endotracheal tube anesthesia. ESTIMATED BLOOD LOSS: Around 100 mL for this part of the procedure. COMPLICATIONS: None. INTRAOPERATIVE FINDINGS: The patient had extensive involvement of the appendix and the mid part of the ileum to the cyst wall, small bowel was completely engulfed by cyst, and appendix was also dilated and long and extremely thickened due to inflammation. The patient had extensive postoperative and post-infectious adhesions of omentum, small bowel, and colon to the anterior abdominal wall, to the interloop adhesions from colon to the cyst, colon to the left vaginal wall. It took approximately 80 to 120 minutes extra for the routine procedure. The procedure was converted from laparoscopy to open due to extensive adhesions and unable to continue laparoscopically. DESCRIPTION OF PROCEDURE: On intraoperative steps, this is a 47-year-old female who was diagnosed with a large pelvic cyst. The patient had lower abdominal pain. The patient was admitted through the emergency room, and the patient was seen and examined. As per Dr. Osullivan, an intraoperative consult was called for extensive adhesions and intraoperative adhesions. First, extra 12-mm port was placed and the extensive lysis of adhesions of the omentum to the anterior abdominal wall, small bowel with the anterior abdominal wall, colon to the lateral abdominal wall was done. The cyst was identified. The cyst was completely covering the appendix that was extremely thick and edematous. The small bowel was also completely engulfed into the cyst wall at mid part on the ileum. A decision was made after approximately half of the procedure to convert the procedure to open. First, the scar revision was done after making an elliptical incision through the old hysterectomy scar and obtained. After incising the skin, subcutaneous tissue and the fascia, the muscle was . The peritoneal cavity was entered by Dr. Osullivan and Dr. Chang, and the cyst was completely excised by Dr. Osullivan. The small bowel was completely engulfed into the cyst wall, and there was a serosal tear of approximately 4 to 5 cm. This was expected incidental occurrence due to extensive nature of inflammation as well as postoperative adhesions as well as complete engulfment of the small bowel by the cyst wall. Now, the ileum was resected, and the [id number] anastomosis was done. Before converting to open, laparoscopically the appendix was extremely thick and edematous and it was adhesed to the cyst. The mesoappendix was resected, and the base of the appendix was resected with the CLIFF. The appendix was taken out through the port site. After conversion obtained, the extensive lysis of adhesion was done. There was a pelvis collection that was also drained. After proper hemostasis, the abdominal wall was closed by Dr. Osullivan. The rest of the dictation will be done by Dr. Osullivan. Up to this part of the procedure, the count of instrument and gauze was correct. There were no apparent complications. The patient was extubated in the OR and sent to the postanesthesia care unit in stable condition. Chaparro Solis MD
[2017-10-21 08:38] VITALS: RESP 18
[2017-10-21] MEDS: Simethicone 80 mg Chewtab PO PRN ×2 (09:03→15:16)
--- NOTE | 2017-10-21 10:54 | CP.PCM.PN ---
Subjective - Date & Time of Evaluation Date of Evaluation: 10/20/17 Time of Evaluation: 07:00 - Subjective Subjective: delyaed entery pt seen adn exmaiend reprots pain imroving sever over incsion, no other compliats. Objective - Vital Signs/Intake and Output Vital Signs (last 24 hours): Temp Pulse Resp BP Pulse Ox 98.3 F 81 18 104/64 97 10/21/17 08:00 10/21/17 08:00 10/21/17 08:00 10/21/17 08:00 10/21/17 08:00 - Medications Medications: Current Medications Diphenhydramine HCl (Benadryl) 25 mg PO Q6 PRN PRN Reason: for itchiness Last Admin: 10/16/17 21:02 Dose: 25 mg Diphenhydramine HCl (Benadryl) 25 mg IVP Q6 PRN PRN Reason: Itching / Pruritus Last Admin: 10/18/17 07:14 Dose: 25 mg Diphenhydramine HCl (Benadryl) 50 mg IVP Q6 PRN PRN Reason: Sedation Last Admin: 10/20/17 15:34 Dose: 50 mg Docusate Sodium (Colace) 100 mg PO BID [facility] Last Admin: 10/21/17 09:03 Dose: 100 mg Enoxaparin Sodium (Lovenox) 30 mg SC DAILY@1900 [facility] Last Admin: 10/20/17 19:38 Dose: 30 mg Famotidine (Pepcid) 20 mg IVP DAILY [facility] Last Admin: 10/21/17 10:31 Dose: 20 mg Lactated Ringer's (Lactated Ringer's) 1,000 mls @ 100 mls/hr IV .Q10H [facility] Piperacillin Sod/Tazobactam Sod (Zosyn 3.375 Gm Iv Premix) 3.375 gm in 50 mls @ 100 mls/hr IVPB Q6H [facility] PRN Reason: Protocol Last Admin: 10/21/17 10:30 Dose: 100 mls/hr Ketorolac Tromethamine (Toradol) 30 mg IVP Q6 PRN PRN Reason: for pain Last Admin: 10/21/17 09:04 Dose: 30 mg Metoclopramide HCl (Reglan) 10 mg IVP ONCE PRN PRN Reason: Nausea/Vomiting Oxycodone/Acetaminophen (Percocet 5/325 Mg Tab) 1 tab PO Q6H PRN PRN Reason: Pain, moderate (4-7) Stop: 10/22/17 16:59 Simethicone (Mylicon Chew Tab) 80 mg PO Q4H PRN PRN Reason: GI distress Last Admin: 10/21/17 09:03 Dose: 80 mg - Labs Labs: 10/18/17 11:05 10/18/17 07:13 PT 12.6 SECONDS (9.7-12.2) H 10/17/17 07:17 INR 1.2 10/17/17 07:17 APTT 33 SECONDS (21-34) 10/17/17 07:17 - Constitutional Appears: Well, Non-toxic - Head Exam Head Exam: ATRAUMATIC, NORMAL INSPECTION - Eye Exam Pupil Exam: PERRL - ENT Exam ENT Exam: Mucous Membranes Moist - Neck Exam Neck Exam: Full ROM - Respiratory Exam Respiratory Exam: Clear to Ausculation Bilateral - Cardiovascular Exam Cardiovascular Exam: +S1, +S2 - GI/Abdominal Exam GI & Abdominal Exam: Soft, Tenderness, Normal Bowel Sounds Additional comments: no guaridng no reboudn tendnere no rigdiyt incsionc dression c//di - Rectal Exam Rectal Exam: NORMAL INSPECTION - Extremities Exam Additional comments: right upper extermity stable swellign no erytema, motor 5/5 saensation intact - Back Exam Back Exam: NORMAL INSPECTION - Neurological Exam Neurological Exam: Alert, Awake, CN II-XII Intact, Normal Gait, Oriented x3 - Skin Skin Exam: Warm Additional comments: negative homans sign Assessment and Plan (1) Pelvic mass Assessment & Plan: 1. Pain managment 2. Diet Advance as per fercho 3. ENourage ambaiton 4. am labs 5. right arm swelling stable Status: Acute
--- NOTE | 2017-10-21 10:56 | CP.PCM.PN ---
Subjective - Date & Time of Evaluation Date of Evaluation: 10/21/17 Time of Evaluation: 10:30 - Subjective Subjective: pt seen and e xamiend c/o pain at right upper extremity reprots swelling increased. Pt dneis any fever, chills, nasue, vomiting, SOB, pt ambating, voidng , passinfg flatus +BM, Objective - Vital Signs/Intake and Output Vital Signs (last 24 hours): Temp Pulse Resp BP Pulse Ox 98.3 F 81 18 104/64 97 10/21/17 08:00 10/21/17 08:00 10/21/17 08:00 10/21/17 08:00 10/21/17 08:00 - Medications Medications: Current Medications Diphenhydramine HCl (Benadryl) 25 mg PO Q6 PRN PRN Reason: for itchiness Last Admin: 10/16/17 21:02 Dose: 25 mg Diphenhydramine HCl (Benadryl) 25 mg IVP Q6 PRN PRN Reason: Itching / Pruritus Last Admin: 10/18/17 07:14 Dose: 25 mg Diphenhydramine HCl (Benadryl) 50 mg IVP Q6 PRN PRN Reason: Sedation Last Admin: 10/20/17 15:34 Dose: 50 mg Docusate Sodium (Colace) 100 mg PO BID [facility] Last Admin: 10/21/17 09:03 Dose: 100 mg Enoxaparin Sodium (Lovenox) 30 mg SC DAILY@1900 [facility] Last Admin: 10/20/17 19:38 Dose: 30 mg Famotidine (Pepcid) 20 mg IVP DAILY [facility] Last Admin: 10/21/17 10:31 Dose: 20 mg Lactated Ringer's (Lactated Ringer's) 1,000 mls @ 100 mls/hr IV .Q10H [facility] Piperacillin Sod/Tazobactam Sod (Zosyn 3.375 Gm Iv Premix) 3.375 gm in 50 mls @ 100 mls/hr IVPB Q6H [facility] PRN Reason: Protocol Last Admin: 10/21/17 10:30 Dose: 100 mls/hr Ketorolac Tromethamine (Toradol) 30 mg IVP Q6 PRN PRN Reason: for pain Last Admin: 10/21/17 09:04 Dose: 30 mg Metoclopramide HCl (Reglan) 10 mg IVP ONCE PRN PRN Reason: Nausea/Vomiting Oxycodone/Acetaminophen (Percocet 5/325 Mg Tab) 1 tab PO Q6H PRN PRN Reason: Pain, moderate (4-7) Stop: 10/22/17 16:59 Simethicone (Mylicon Chew Tab) 80 mg PO Q4H PRN PRN Reason: GI distress Last Admin: 10/21/17 09:03 Dose: 80 mg - Labs Labs: 10/18/17 11:05 10/18/17 07:13 PT 12.6 SECONDS (9.7-12.2) H 10/17/17 07:17 INR 1.2 10/17/17 07:17 APTT 33 SECONDS (21-34) 10/17/17 07:17 - Head Exam Head Exam: ATRAUMATIC, NORMAL INSPECTION - Eye Exam Eye Exam: EOMI - ENT Exam ENT Exam: Mucous Membranes Moist - Neck Exam Neck Exam: Normal Inspection - Respiratory Exam Respiratory Exam: Clear to Ausculation Bilateral, NORMAL BREATHING PATTERN - Cardiovascular Exam Cardiovascular Exam: +S1 - GI/Abdominal Exam GI & Abdominal Exam: Soft, Normal Bowel Sounds Additional comments: TTP near incison c/d/i no ertyema no guareding, no reboudn tno reobudn tendnere, no rigdity +BS - Extremities Exam Extremities Exam: Full ROM, Normal Inspection. absent: Calf Tenderness, Joint Swelling, Normal Capillary Refill, Pedal Edema, Tenderness Additional comments: right upper extremity swelling over anticubital fossa , no erythema, no skin defect - Neurological Exam Neurological Exam: CN II-XII Intact, Normal Gait, Oriented x3 - Psychiatric Exam Psychiatric exam: Flat Affect, Normal Affect, Normal Mood - Skin Skin Exam: Dry, Intact Assessment and Plan (1) Pelvic mass Assessment & Plan: 1. Pain managment: po, optimize 2. Diet Regular 3. AM labs 4. Abdominal binder, incentive spirometer 5. RUE swelling: ultrasound, compresses 6. DVT prophyalixs Status: Acute
--- NOTE | 2017-10-21 15:02 | VASCLAB ---
PROCEDURE: Right Upper Extremity Venous Duplex Exam HISTORY: s/p abd surgery c/o pain GUI PRIORS: None. TECHNIQUE: Right upper extremity, internal jugular, subclavian, axillary, brachial, ulnar, radial, basilic and upper cephalic veins were evaluated. Flow was assessed with color Doppler, compressibility, assessment of phasic flow and augmentation response. Report prepared by Girish Abdullahi, T FINDINGS: RIGHT: 1. Internal Jugular: 1.1. Compressibility - Fully compressible: Thrombus - None : Flow - Phasic: Augmentation -Normal: Reflux - . 2. Subclavian: 2.1. Compressibility - Fully compressible: Thrombus - None : Flow - Phasic: Augmentation -Normal: Reflux - . 3. Axillary: 3.1. Compressibility - Fully compressible: Thrombus - None : Flow - Phasic: Augmentation -Normal: Reflux - . 4. Brachial: 4.1. Compressibility - Fully compressible: Thrombus - None: Flow - Phasic: Augmentation -Normal: Reflux - . 5. Ulnar: 5.1. Compressibility - Fully compressible: Thrombus - None: Flow - : Augmentation -: Reflux - . 6. Radial: 6.1. Compressibility - Fully compressible: Thrombus - None: Flow - : Augmentation - : Reflux - . 7. Cephalic: 7.1. Compressibility - Fully compressible: Thrombus - None: Flow - : Augmentation -: Reflux - . 8. Basilic: 8.1. Compressibility - Fully compressible: Thrombus - None: Flow - : Augmentation -: Reflux - . OTHER FINDINGS: Right: None. IMPRESSION: Right: No evidence of vein thrombosis of the right upper extremity with excellent venous flow. Normal venous flow noted in the left internal jugular and left subclavian veins.
[2017-10-21] MEDS ORDERED: Trolamine Salicylate 10% Cream (85 gm) TOP PRN (15:15)
[2017-10-21] MEDS ORDERED: Oxycodone/Acetaminophen 5/325 mg Tab PO PRN (15:42)
[2017-10-21 16:13] VITALS: BP 124/77; PULSE 93; TEMP 98; O2SAT 98
--- NOTE | 2017-10-25 07:58 | OP ---
PROCEDURE DATE: 10/17/2017 SURGEON: Smita Osullivan MD ASSISTANTS: Chaparro Solis MD; Josh Chang MD; and MITCH Garvey. PREOPERATIVE DIAGNOSES: Pelvic pain, pelvic mass, adhesions, ovarian cyst, hydrosalpinx. POSTOPERATIVE DIAGNOSES: Pelvic pain, pelvic mass, adhesions, ovarian cyst, hydrosalpinx, extensive lysis of the adhesions and pelvic mass, incidental appendectomy. OPERATIVE FINDINGS: Dense adhesions of omentum to anterior abdominal wall along left side, along with of pelvic mass, small bowel, cecum, appendix, attachment to the cystic mass, peritoneum, bladder cuff enlarged to 9 cm. Mucinous type fluid removed, pelvic washings also obtained. Incidental appendectomy by General Surgery due to dense adhesions as a swab. Posterior ovarian mass attached to the bladder and cuff with small bowel adhesions and omental adhesions of the anterior abdominal wall. Four hours on extensive lysis of adhesions laparoscopically. Prior exploratory laparotomy scar incision entered and excised due to small bowel adhesions. Decision based on small bowel findings, partial excision and release laparoscopically completed due to concerns in her bladder. ESTIMATED BLOOD LOSS: [address] Josh Chang, the surgical training specialist, was present for the entire case and assisted essentially in gaining entry, laparoscopically, establish pneumoperitoneum, gaining access, lysis of adhesion, holding camera, conversion to open, extensive lysis of adhesions, and removal of pelvic mass. Please refer to General Surgery note regarding extensive lysis of adhesions, appendectomy, small bowel resection, anastomosis. OPERATIONS PERFORMED: Diagnostic laparoscopy, lysis of adhesions, excision and drainage of the pelvic mass, revision of prior exploratory laparotomy scar, lysis of adhesions via laparotomy with removal of pelvic mass, oophorectomy with ovarian cystectomy, pelvic washing. SPECIMENS REMOVED: Pelvic washing, this contained pelvic mass; removal of ovarian cyst and oophorectomy, excision of prior abdominal wall adhesions. COMPLICATIONS: None. The patient was appropriately counseled risks, benefits, alternatives, and indications. On prior abdominal surgery, the patient had declined minimally invasive consult with PHILATELIC CONSULTANT and oncologist. The patient was advised on limitations with increased risk of open nature of procedure, not limited to bleeding, bowel and bladder injury, injury to blood vessels, and other complications such as colostomy or cystotomy. The patient obtained consent. DESCRIPTION OF PROCEDURE: The patient was taken to the operating room where she was given general anesthesia. Once it was found to be adequate, she was placed on the operating table in dorsal supine position. The patient was then prepped and draped in the usual sterile fashion. Reddy catheter has been inserted to drain. Laparoscopic entry was then inserted using local anesthesia supraumbilically using a 5-mm skin incision after 1% lidocaine with epinephrine, Veress needle was then inserted after the skin was retracted up. Confirmation was placed using normal saline. The gas was then insufflated to have normal opening pressure to 15 mmHg. Following this, the laparoscope under direct visualization was inserted. Please refer to operative note for findings. Following this, a 5-mm right and left lower quadrant incision was made. Under direct visualization, the ports were then removed. The patient was then placed into Trendelenburg position. There were gross bowel adhesions noted, draped over. A LigaSure device was then inserted to help lyse anterior adhesions from the anterior abdominal wall. At that point, bowel was noted another concerning finding. General Surgery was called at that point. Please refer to General Surgery note. After completion of lysis of adhesions after 4 hours, decision was made to enter laparotomy. The prior abdominal incisional scar was then removed. Following this, laparotomy incision was entered going down the fascia, which was inserted. Incision was extended laterally into the peritoneal cavity. At that point, the ovarian cyst had been drained and removed and as much that was closely possible associated with vaginal cuff and the bladder wall. There was irrigation noted. Please refer to surgery note for appendectomy, cecum, and all other issues pertaining to the cyst. The abdomen was thoroughly irrigated and inspected. Good hemostasis was noted. Following this, the ovarian cyst after it was carefully dissected from all the adhesions was carefully removed. Hemostasis was obtained. Cyst wall and oophorectomy was sent for pathology, and all of the pelvic fluid that was mucinous was sent for pathology as well. Then, it was thoroughly irrigated. Good hemostasis noted. Please refer to the surgery note for repair and removal of adhesions, etc., appendectomy. Following this, after good hemostasis noted, the peritoneum was then reapproximated with 2-0 chromic. The rectus was reapproximated with 2-0 chromic. The subcutaneous layers were closed with 2-0 plain in interrupted manner. The skin was reapproximated with 4-0 Monocryl. All the laparoscopic ports had been removed. A fourth port had been inserted by Surgery to help with lysis of adhesions. At that point, there was a 12-mm skin incision. The fascia was reapproximated and closed, and all skin incisions were closed with 4-0 Monocryl. At the end of the procedure, all needles, sponge, and instrument counts were noted to be correct x2. The patient was then transferred to the recovery room in stable condition. Smita Osullivan MD
== END 2017-10-21 18:00 | disposition home or self-care (01) | DRG 742 ==
LOC: C.ER 17:15 → C.4M 19:38
PROVIDERS: ADMIT Obstetrics & Gynecology; ATTEND Obstetrics & Gynecology
PROC: 0UT04ZZ Resection of Right Ovary, Percutaneous Endoscopic Approach (ICD-10-PCS; 2017-10-17)
PROC: 0DNU0ZZ Release Omentum, Open Approach (ICD-10-PCS; 2017-10-17)
PROC: 0DTB4ZZ Resection of Ileum, Percutaneous Endoscopic Approach (ICD-10-PCS; 2017-10-17)
PROC: 0DTJ4ZZ Resection of Appendix, Percutaneous Endoscopic Approach (ICD-10-PCS; 2017-10-17)
PROC: 0W9J0ZX Drainage of Pelvic Cavity, Open Approach, Diagnostic (ICD-10-PCS; 2017-10-17)
PROC: 0HB7XZZ Excision of Abdomen Skin, External Approach (ICD-10-PCS; 2017-10-17)
PROC: 0DJU4ZZ Inspection of Omentum, Percutaneous Endoscopic Approach (ICD-10-PCS; principal; 2017-10-17 09:00)
DX: N83.201 Unspecified ovarian cyst, right side (principal); S36.439A Laceration of unspecified part of small intestine, initial encounter; K66.0 Peritoneal adhesions (postprocedural) (postinfection); F17.210 Nicotine dependence, cigarettes, uncomplicated; G89.29 Other chronic pain; Z53.31 Laparoscopic surgical procedure converted to open procedure; Y65.8 Other specified misadventures during surgical and medical care; Z90.710 Acquired absence of both cervix and uterus; R10.2 Pelvic and perineal pain